=== PATIENT | female | born 1970 | race Caucasian/White ===

== ENCOUNTER 2020-05-24 16:32 | Emergency (ER) | payer MEDICARE ==
[~2020-05-24] VITALS: Ht 170.2 cm; Wt 70.3 kg
[2020-05-24] MEDS ORDERED: CYCLOBENZAPRINE 10 M (17:15)
[2020-05-24] MEDS ORDERED: HYDROCODONE-ACETAMIN (17:15)
[2020-05-24] MEDS ORDERED: Crestor20 MG PO (17:16)
[2020-05-24] MEDS ORDERED: LEFL20 PO (17:16)
[2020-05-24] MEDS ORDERED: HUMIRA40 MG/0.2 (17:16)
== END 2020-05-24 17:32 | disposition home or self-care (01) ==
LOC: ER 16:32
DX: S92.512A Displaced fracture of proximal phalanx of left lesser toe(s), initial encounter for closed fracture (principal); Z88.6 Allergy status to analgesic agent; Z79.899 Other long term (current) drug therapy; W22.8XXA Striking against or struck by other objects, initial encounter
CPT/HCPCS: 73630; 99283-25

== ENCOUNTER → 2024-07-23 | Outpatient (CLI) | payer MEDICARE ==
[~2024-07-23] MED LIST: CYCLOBENZAPRINE 10 M; Crestor20 MG PO; HUMIRA40 MG/0.2; HYDROCODONE-ACETAMIN; LEFL20 PO; LIDO700A20 TOP; Robaxin750 MG PO
== END ==
LOC: LAB 11:28 → LAB SHORT 11:28
DX: N39.0 Urinary tract infection, site not specified (principal)
CPT/HCPCS: 87077; 87086; 87186